=== PATIENT | male | born 1950 | race Caucasian/White ===

== ENCOUNTER 2016-12-04 04:51 | Emergency (ER) | payer OTHER, MEDICAID ==
[2016-12-04 04:58] VITALS: BP 145/79; BMI 25.8
--- NOTE | 2016-12-04 06:15 | DR.GENAD ---
HPI - PCP Primary Care Physician: valeriano - Complaint/Symptoms Chief Complaint Doctors Comments: Patient states that he has left anterior medial chest pain and left back pain lateral left clavicle for two days. Denies a history o cardiac disease. Chief Complaint:: pt c/o upper lt back pain x 2 days-denies injury-pain under lt shoulder blade - Source History Provided: Patient - Mode of Arrival Mode of Arrival: Ambulatory - Timing Onset of Chief Complaint: 12/02/16 PMH - PMH Past Medical History: Yes Past Medical History: Hypertension Past Medical History Comment: prostate,hiatel hernia Past Surgical History: Yes Past Surgical History Comment: cancer cut off neck - Family History History of Family Medical Conditions: No - Social History Does patient currently use any type of tobacco product: No Do you use any recreational Drugs:: No - infectious screening In the last 2 months have you had wt loss of >10#?: NO Have you had fever, night sweats or hemotysis?: No Have you traveled outside the country in the last 6 months?: No Isolation: Standard ROS - Review of Systems Constitutional: No Symptoms Reported. negative: Chills Eyes: No Symptoms Reported ENTM: No Symptoms Reported Respiratoy: No Symptoms Reported Cardiovascular: See HPI Gastrointestinal/Abdominal: No Symptoms Reported Genitourinary: No Symptoms Reported Neurological: No Symptoms Reported Musculoskeletal: No Symptoms Reported Integumentary: No Symptoms Reported Hematologic/Lymphatic: No Symptoms Reported Endocrine: No Symptoms Reported Psychiatric: See HPI All Other Systems: Reviewed and Negative PE - Vital Signs Vitals: Temperature 98.2 F Pulse Rate 64 Respiratory Rate 20 Blood Pressure [Left Arm] 134/89 Blood Pressure 145/79 O2 Sat by Pulse Oximetry 96 - General Limitations: No Limitations General Appearance: Alert, In No Apparent Distress - Head Head Exam: Normal Inspection, Atraumatic - Eyes Eye exam: Normal Appearance, PERRL, EOMI - ENT ENT Exam: Normal Exam External Ear Exam: Normal External Inspection TM/Canal Exam: Bilateral Normal Nose Exam: Normal Nose Exam, Sinus Tenderness Mouth Exam: Normal Inspection Throat Exam: Normal Inspection - Neck Neck Exam: Normal Inspection, Full ROM - Chest Chest Inspection: Normal Inspection - Respiratory Respiratory Exam: Normal Lung Sounds Bilat Respiratory Exam: Bilateral Clear to Auscultation - Cardiovascular Cardiovascular Exam: Bradycardia - Abdominal Exam Abdominal Exam: Normal Inspection, Normal Bowel Sounds Abdominal Tenderness: negative: RUQ, RLQ, LUQ, LLQ, Epigastrium, Suprapubic, Diffuse, Mild, Moderate, Severe, Other - Extremities Extremities Exam: Normal Inspection, Full ROM - Back Back Exam: Normal Inspection. negative: (R) CVA Tenderness, (L) CVA Tenderness - Neurologic Neurological Exam: Alert, Oriented X3, CN II-XII Intact - Psychiatric Psychiatric Exam: Normal Affect - Skin Skin Exam: Warm, Dry, Intact Course - Reevaluation 1st: Unchanged ROR - Labs Reviewed Laboratory Results Reviewed?: Yes (cardiacs negative) Result Diagrams: 12/04/16 06:30 12/04/16 06:30 Laboratory: WBC 6.9 X10^3/uL (3.6-10.0) 12/04/16 06:30 RBC 4.68 X10^6/uL (4.7-6.0) L 12/04/16 06:30 Hgb 14.3 g/dL (13.5-18.0) 12/04/16 06:30 Hct 41.5 % (42.0-54.0) L 12/04/16 06:30 MCV 88.7 fL (80.0-100.0) 12/04/16 06:30 MCH 30.5 pg (27.0-34.0) 12/04/16 06:30 MCHC 34.4 g/dL (33.0-35.0) 12/04/16 06:30 RDW 14.2 % (11.6-16.5) 12/04/16 06:30 Plt Count 204 X10^3/uL (150.0-450.0) 12/04/16 06:30 MPV 8.4 fL (7.4-11.0) 12/04/16 06:30 Neut % 73.6 % (42.0-75.0) 12/04/16 06:30 Lymph % 18.2 % (21.0-51.0) L 12/04/16 06:30 [place] % 5.7 % (0.0-13.0) 12/04/16 06:30 Eos % 1.5 % (0.9-2.9) 12/04/16 06:30 Baso % 1.0 % (0.2-1.0) 12/04/16 06:30 Neut # 5.1 x10^3/uL (2.2-4.8) H 12/04/16 06:30 Lymph # 1.3 X10^3/uL (1.3-2.9) 12/04/16 06:30 [place] # 0.4 x10^3/uL (0.3-0.8) 12/04/16 06:30 Eos # 0.1 x10^3/uL (0.0-0.2) 12/04/16 06:30 Baso # 0.1 X10^3/uL (0.0-0.1) 12/04/16 06:30 Absolute Nucleated RBC 0.0 /100WBC 12/04/16 06:30 INR Target Range - 12/04/16 06:30 INR 0.98 (0.8-1.3) 12/04/16 06:30 PTT 28.6 SECONDS (22.9-36.5) 12/04/16 06:30 PTT Comment - 12/04/16 06:30 Sodium 145 mmol/L (136-145) 12/04/16 06:30 Corrected Sodium 146 mmol/L (136-145) H 12/04/16 06:30 Potassium 4.1 mmol/L (3.5-5.1) 12/04/16 06:30 Chloride 108 mmol/L (98-107) H 12/04/16 06:30 Carbon Dioxide 26.8 mmol/L (21-32) 12/04/16 06:30 BUN 18 mg/dL (7-18) 12/04/16 06:30 Creatinine 0.77 mg/dL (0.70-1.30) 12/04/16 06:30 Est GFR (MDRD) Af Amer > 60 (>60) 12/04/16 06:30 Est GFR (MDRD) Non-Af > 60 (>60) 12/04/16 06:30 Glucose 158 mg/dL (65-99) H 12/04/16 06:30 Calcium 8.5 mg/dL (8.5-10.1) 12/04/16 06:30 Corrected Calcium TNP 12/04/16 06:30 Phosphorus 2.4 mg/dL (2.6-4.7) L 12/04/16 06:30 Magnesium 1.9 mg/dL (1.7-2.9) 12/04/16 06:30 Total Bilirubin 0.30 mg/dL (0.2-1.0) 12/04/16 06:30 AST 24 Units/L (15-37) 12/04/16 06:30 ALT 35 Units/L (12-78) 12/04/16 06:30 Alkaline Phosphatase 77 Units/L (46-116) 12/04/16 06:30 Creatine Kinase 92 Units/L (39-308) 12/04/16 06:30 CK-MB (CK-2) 1.4 ng/mL (0-4.0) 12/04/16 06:30 CK/CKMB % Calc 1.5 % (<4) 12/04/16 06:30 Troponin I < 0.02 ng/mL (0-1.5) 12/04/16 06:30 Total Protein 7.1 g/dL (6.4-8.2) 12/04/16 06:30 Albumin 3.7 g/dL (3.4-5.0) 12/04/16 06:30 Globulin 3.4 g/dL (2.5-4.5) 12/04/16 06:30 Albumin/Globulin Ratio 1.1 Ratio (1.1-2.1) 12/04/16 06:30 - XRAY XRAY Interpreted by: Radiologist (Chest: Hiatal hernia; CT Chest: negative for pericarditis) XRAY Findings: Chest: negative for pericarditis - EKG [place]: Normal Rhythm: SB - Diagnosis Discharge Problem: Chest wall pain - Discharge Plan Condition: Stable - Follow ups/Referrals Follow ups/Referrals: AISHWARYA HAZEL [Primary Care Provider] - 3 days - Instructions
--- NOTE | 2016-12-04 06:18 | RAD ---
HISTORY: Upper chest pain, back pain Study: Chest two-view Comparison: Chest CT February 01, 2015 Findings: The heart is within normal limits in size. The bel are normal. The lungs are mildly hyperinflated b ut free of acute alveolar infiltrates. No pleural effusions are identified. Mild interstitial lung d isease is present. There is a hiatal hernia present. The bony thorax is unremarkable with the except ion of minimal thoracic spondylosis. IMPRESSION: COPD with mild interstitial lung disease Hiatal hernia Reported By:
--- NOTE | 2016-12-04 07:03 | CT ---
HISTORY: Pericarditis, chest pain Study: Chest CT without contrast Comparison: February 01, 2015 Technique: Axial non contrast images with coronal and sagittal reformats. Dose reduction procedures were used with MA/kv adjusted for body size. Findings: Examination of the mediastinum demonstrated no definite evidence for mediastinal masses, enlarged ly mphadenopathy, or enlarged hilar adenopathy. Nonenlarged nodes are present. Coronary artery calcific ations are present. No pericardial effusion is identified. There is a hiatal hernia present. No pleu ral effusions are identified. No chest wall or axillary abnormality is identified. Those portions of the upper abdominal organs visualized were within normal limits. The lungs are hyperinflated. No si gnificant nodules, masses, alveolar infiltrates, areas of consolidation, peribronchial thickening, o r bronchiectasis is identified. IMPRESSION: No evidence for pericardial effusion Lungs hyperinflated but clear Reported By:
[2016-12-04 07:10] LABS: BLOOD UREA NITROGEN 18 mg/dL (7-18); CALCIUM 8.5 mg/dL (8.5-10.1); CARBON DIOXIDE 26.8 mmol/L (21-32); CHLORIDE 108 mmol/L (98-107); COR NA(FOR HYPERGLY) 146 mmol/L (136-145); CREATININE 0.77 mg/dL (0.70-1.30); GLUCOSE 158 mg/dL (65-99); SODIUM 145 mmol/L (136-145); TROPONIN I < 0.02 ng/mL (0-1.5); eGFR BLACK RACES > 60 (>60); eGFR NON BLACK RACES > 60 (>60)
[2016-12-04 07:11] LABS: BASOPHILS # (AUTO) 0.1 X10^3/uL (0.0-0.1); EOSINOPHILS # (AUTO) 0.1 x10^3/uL (0.0-0.2); EOSINOPHILS % (AUTO) 1.5 % (0.9-2.9); HEMATOCRIT 41.5 % (42.0-54.0); HEMOGLOBIN 14.3 g/dL (13.5-18.0); LYMPHOCYTES # (AUTO) 1.3 X10^3/uL (1.3-2.9); LYMPHOCYTES % (AUTO) 18.2 % (21.0-51.0); MEAN CORPUSCULAR HEMOGLOBIN 30.5 pg (27.0-34.0); MEAN CORPUSCULAR HGB CONC 34.4 g/dL (33.0-35.0); MEAN CORPUSCULAR VOLUME 88.7 fL (80.0-100.0); MEAN PLATELET VOLUME 8.4 fL (7.4-11.0); MONOCYTES # (AUTO) 0.4 x10^3/uL (0.3-0.8); MONOCYTES % (AUTO) 5.7 % (0.0-13.0); NEUTROPHILS # (AUTO) 5.1 x10^3/uL (2.2-4.8); NEUTROPHILS % (AUTO) 73.6 % (42.0-75.0); PLATELET COUNT 204 X10^3/uL (150.0-450.0); RED BLOOD COUNT 4.68 X10^6/uL (4.7-6.0); RED CELL DISTRIBUTION WIDTH 14.2 % (11.6-16.5); WHITE BLOOD COUNT 6.9 X10^3/uL (3.6-10.0)
[2016-12-04 07:17] LABS: ALBUMIN 3.7 g/dL (3.4-5.0); ALKALINE PHOSPHATASE 77 Units/L (46-116); CKMB % 1.5 % (<4); CREATINE KINASE 92 Units/L (39-308); CREATINE KINASE MB 1.4 ng/mL (0-4.0)
[2016-12-04 07:24] LABS: ALANINE AMINOTRANSFERASE 35 Units/L (12-78); ASPARTATE AMINO TRANSFERASE 24 Units/L (15-37); TOTAL PROTEIN 7.1 g/dL (6.4-8.2)
[2016-12-04 07:25] LABS: MAGNESIUM 1.9 mg/dL (1.7-2.9); PHOSPHORUS 2.4 mg/dL (2.6-4.7)
== END 2016-12-04 07:43 | disposition home or self-care (01) ==
LOC: ER 04:51
DX: R07.89 Other chest pain (principal)
CPT/HCPCS: 36415; 71020; 71250; 80053; 82550; 82553; 83735; 84100; 84484; 85025; 85610; 85730; 93005; 93010; 96365; 99283; A4222

== ENCOUNTER → 2017-09-27 | Outpatient (CLI) | payer OTHER, MEDICAID ==
--- NOTE | 2017-09-27 13:48 | RAD ---
Examination: Right hip, two views History: Osteoarthritis Findings: Bone density is normal for age. The femoral head is smooth in contour and in normal positio n. Joint space is not significantly narrowed. No fracture or bone destruction or periarticular calcif ication is noted. Impression: No acute or significant right hip findings. Reported By:
== END ==
LOC: RAD 12:39
PROVIDERS: ATTEND Internal Medicine
DX: M16.11 Unilateral primary osteoarthritis, right hip (principal)
CPT/HCPCS: 73501

== ENCOUNTER 2025-06-02 10:20 | Observation (INO) ==
[2025-06-02 11:50] VITALS: BMI 33.7
--- NOTE | 2025-06-02 12:30 | DR.H&P ---
H&P History & Physical for Day of: H&P Date: 06/02/25 Chief Complaint Chief Complaint: STEVENSON, CHILLS, EARACHE, CCC History of Present Illness History of Present Illness: PT IS 74 WM DIRECT ADMIT FROM DR HAZEL'S OFFICE WITH AB AND MASTOIDITIS CONFIRMED ON CT DONE OUTPT. PT HAS ALREADY COMPLETED ORAL ZITHROMAX AND HAD IM ROCEPHIN AND KENALOG INJECTIONS. PT HAS PMH OF DM, HTN, COPD, CAD, OA AND NEUROPATHY. Past Medical History Past Medical History: Anxiety, Arthritis, Depression, Diabetes, GERD and Hypertension Past Surgical History Surgical History: Angioplasty/Stents Family History Family Medical History: Diabetes Mellitus, Cancer, CA, Coronary Artery Disease, Heart Failure and Hypertension Social History Does patient currently use any type of tobacco product: No Type of Tobacco Use: None Alcohol Use: None Drug Use: None Medications Home Medications: Home Medications Medication Instructions Recorded Confirmed Type albuterol sulfate 90 mcg/actuation 1 inh inhalation DA ADRYAN 03/30/23 06/02/25 History breath activated powder inhaler (ProAir RespiClick) clopidogrel 75 mg tablet 75 mg PO QDAY 03/30/2306/02 History diltiazem HCl 120 mg 120 mg PO BID 03/30/2306/02 History capsule,extended release 12 hr esomeprazole magnesium 40 mg 40 mg PO BID 03/30/23 History capsule,delayed release finasteride 5 mg tablet 50 mg PO QDAY 03/30/2306/02 History hydralazine 10 mg tablet 10 mg PO BID 03/30/23 History metformin 500 mg tablet,extended 500 mg PO QDAY 06/02/25 History release 24 hr olmesartan 40 mg tablet 40 mg PO QDAY 03/30/2306/02 History ondansetron HCl 4 mg tablet 4 mg PO Q8H PRN 03/30/23 0 06/02/25 History ropinirole 4 mg tablet 4 mg PO TID 03/30/23 5 History rosuvastatin 40 mg tablet 40 mg PO QHS 03/30/23 History tramadol 50 mg tablet 50 mg PO Q4H PRN 03/30/23 History bupropion HCl 150 mg 24 hr tablet, 150 mg PO QDAY 05/1706/02/25 History extended release celecoxib 100 mg capsule 100 mg PO BID 06/02/2506/02 History empagliflozin 25 mg tablet 25 mg PO QDAY 06/02/2505/17 History (Jardiance) ergocalciferol (vitamin D2) 1,250 1,250 mcg PO QWEEK 0 06/02/25 06/02/25 History mcg (50,000 unit) capsule (Vitamin D2) levocetirizine 5 mg tablet 5 mg PO QHS 06/02/25 History melatonin 10 mg chewable tablet 20 mg PO QHS 06/02/25 06/02/25 History quetiapine 25 mg tablet 25 mg PO QPM 06/02/25 History Allergies Allergies Allergy/AdvReac Type Severity Reaction Status Date / Time Sulfa (Sulfonamide Allergy Verified 06/02/25 11:58 Antibiotics) (SULFA) Review of Systems Constitutional: Fever, Chills and Weakness Eyes: No Symptoms Reported ENT: Ear Pain, Nose Discharge and Nose Congestion Respiratory: Cough and Shortness of Breath Cardiovascular: No Symptoms Reported Gastrointestinal: Nausea Genitourinary: Frequency Musculoskeletal: Back Pain Skin: No Symptoms Reported Neurological: Other (DIZZINESS) Physical Exam Vital Signs: Vital Signs Temperature 98.0 F Pulse Rate [Radial] 62 Respiratory Rate 20 Blood Pressure [Right Arm] 146/76 O2 Sat by Pulse Oximetry 94 Oriented: Normal Eyes: Normal Ear: Right (EXTERNAL CANAL SURGICALLY CLOSE WITH COCHCLEAR IMPLANT) and Left Nose: Discharge Throat: Red Respiratory: Wheezes Throughout Cardiovascular: Edema Auscultation: Bowel Sounds: Normal Palpation: Normal Tenderness: Normal Skin: Decreased Turgur Musculoskeletal: Back:Lumbar Psychiatric: Anxiety Mood Description: Anxious Affect: Anxious Speech Pattern: Clear and Appropriate Assessment/Plan (1) Mastoiditis: Status: Acute Plan: ADMIT, BLOOD CULTURES X 2, CRP AND SED RATE IV HYDRATION AND IV ATBX THERAPY SEE CT FROM OUTPT VISIT READ ON 05/27 PAIN CONTROL AND BP CONTROL (2) Otitis media: Status: Acute (3) Acute bronchitis: Status: Acute (4) Hypertension, essential: Status: Acute (5) Diabetes: Status: Acute (6) CAD (coronary artery disease): Status: Acute
[2025-06-02] MEDS: NS 1,000 ML IV 1,000 ML IV SCH (12:58)
[2025-06-02] MEDS ORDERED: PHARMACY CONSULT - VANCOMYCIN XX SCH (13:00)
[2025-06-02] MEDS ORDERED: PHARMACY CONSULT XX SCH (13:00)
[2025-06-02 13:08] LABS: BLOOD/HEMOGLOBIN,URINE NEGATIVE (NEGATIVE); LEUKOCYTE ESTERASE ,URINE NEGATIVE (NEGATIVE); NITRITES,URINE NEGATIVE (NEGATIVE)
[2025-06-02 13:11] LABS: MEAN PLATELET VOLUME 7.2 fL (7.4-11.0); RED CELL DISTRIBUTION WIDTH 18.5 % (11.6-16.5)
[2025-06-02 13:12] LABS: ERYTHROCYTE SEDIMENTATION RATE 58 MM/HOUR (0-15)
[2025-06-02 13:14] LABS: APPEARANCE,URINE CLEAR (CLEAR)
[2025-06-02 13:15] LABS: CALCIUM OXALATE CRYSTALS,UR RARE /HPF (NEGATIVE); SQUAMOUS EPITHELIAL CELL,UR RARE /HPF (NEGATIVE)
[2025-06-02 13:19] LABS: COR NA(FOR HYPERGLY) 142 mmol/L (136-145); CREATININE 0.81 mg/dL (0.70-1.30); eGFR NON BLACK RACES > 60 (>60)
[2025-06-02] MEDS: PROVENTIL NEB TX 0.083% 2.5MG/ 3ML NEB SCH (13:25)
[2025-06-02] MEDS: REQUIP PO SCH (13:57)
[2025-06-02] MEDS: VANCOMYCIN IV *PREMIX 1.25 G/250 ML BAG 1.25 G/250 ML PIGGYBACK IV SCH (14:55)
[2025-06-02] MEDS: LOVENOX INJ 40 MG SYR SC SCH (14:55)
[2025-06-02] MEDS: TYLENOL 325 MG TAB PO PRN (15:56)
--- NOTE | 2025-06-02 16:33 | RAD ---
EXAM: CHEST, PA/LAT ADULT HISTORY: ccc; COMPARISON: 05/10/2025 br.br.br.br.br.br.br.br prominent cardiac silhouette, accentuated by technique. Left-sided pacer leads in place. Pulmonary vascular engorgement. Mild hazy perihilar opacities. No pleural effusion or visible pneumothorax. IMPRESSION: Pulmonary vascular engorgement and suspected pulmonary edema. THIS IS AN ELECTRONICALLY VERIFIED FINAL REPORT 06/02/2025 4:30 PM - Electronically signed by King Flores MD
[2025-06-02] MEDS: LOVENOX INJ 40 MG SYR SC ONE (17:46)
[2025-06-02] MEDS: VANCOMYCIN IV *PREMIX 1.25 G/250 ML BAG 1.25 G/250 ML PIGGYBACK IV ONE (17:46)
[2025-06-02] MEDS: TYLENOL 325 MG TAB PO ONE (17:47)
[2025-06-02] MEDS: PROTONIX TAB 40 MG PO SCH (20:37)
[2025-06-03 04:52] LABS: MEAN PLATELET VOLUME 7.3 fL (7.4-11.0); RED CELL DISTRIBUTION WIDTH 18.5 % (11.6-16.5)
[2025-06-03 05:00] LABS: COR CA(FOR HYPOALB) 9.5 mg/dL (8.5-10.1); CREATININE 0.61 mg/dL (0.70-1.30); eGFR NON BLACK RACES > 60 (>60)
[2025-06-03] MEDS ORDERED: PROSCAR PO SCH (09:00)
[2025-06-03] MEDS: LASIX IVP ONE (09:31)
[2025-06-03] MEDS: CARDIZEM CD 240 MG 24-HR PO SCH (09:32)
[2025-06-03] MEDS: BENICAR PO SCH (09:32)
[2025-06-03] MEDS: GLUCOPHAGE XR 24-HR PO SCH (09:32)
[2025-06-03] MEDS: PLAVIX PO SCH (09:32)
[2025-06-03] MEDS: WELLBUTRIN XL 150 MG (DAILY) PO SCH (09:35)
[2025-06-03] MEDS: PROSCAR PO SCH (09:47)
[2025-06-03] MEDS: NORCO 5/325 MG TAB PO PRN (09:48)
[2025-06-03] MEDS: TORADOL 30 MG VIAL IVP ONE (14:17)
[2025-06-03] MEDS: NORCO 7.5/325 MG TAB PO PRN (15:57)
[2025-06-03 21:08] LABS: CREATININE 0.76 mg/dL (0.70-1.30)
[2025-06-03] MEDS: PHARMACY COMMENT IV NR (21:16)
[2025-06-03] MEDS: MAALOX or MYLANTA PO PRN (23:23)
[2025-06-04 06:04] LABS: MEAN PLATELET VOLUME 7.2 fL (7.4-11.0); RED CELL DISTRIBUTION WIDTH 18.4 % (11.6-16.5)
[2025-06-04 06:22] LABS: CREATININE 0.74 mg/dL (0.70-1.30); eGFR NON BLACK RACES > 60 (>60)
--- NOTE | 2025-06-04 07:43 | RAD ---
EXAM: CHEST, PA/LAT ADULT HISTORY: CCC ; COPD, HTN, SLEEP APNEA, GERD BPH SX: PACEMAKER, ANGIO/STENTS COMPARISON: 06/02/2025 FINDINGS: r device overlying the left hemithorax is observed. The lungs are clear without focal infiltrate or effusion. The bony thorax is unremarkable. IMPRESSION: No acute cardiopulmonary disease. THIS IS AN ELECTRONICALLY VERIFIED FINAL REPORT 06/04/2025 7:40 AM - Electronically signed by Cedrick Ontiveros MD
[2025-06-04 07:59] VITALS: BP 138/81; TEMP 97.4
[2025-06-04 09:20] VITALS: PULSE 50; O2SAT 95
[2025-06-04 10:09] VITALS: RESP 18
== END 2025-06-04 11:15 | disposition home or self-care (01) ==
LOC: MED/SURG
PROVIDERS: ADMIT Internal Medicine; ATTEND Internal Medicine
DX: F32.89 Other specified depressive episodes; K21.9 Gastro-esophageal reflux disease without esophagitis; R79.82 Elevated C-reactive protein (CRP); H70.002 Acute mastoiditis without complications, left ear; R51.9 Headache, unspecified; J20.8 Acute bronchitis due to other specified organisms; E11.65 Type 2 diabetes mellitus with hyperglycemia; Z16.29 Resistance to other single specified antibiotic; B96.29 Other Escherichia coli [E. coli] as the cause of diseases classified elsewhere; J44.9 Chronic obstructive pulmonary disease, unspecified; Z16.12 Extended spectrum beta lactamase (ESBL) resistance; M19.90 Unspecified osteoarthritis, unspecified site; R53.1 Weakness; I10 Essential (primary) hypertension; R70.0 Elevated erythrocyte sedimentation rate; Z96.21 Cochlear implant status; I25.10 Atherosclerotic heart disease of native coronary artery without angina pectoris; Z16.23 Resistance to quinolones and fluoroquinolones; F41.8 Other specified anxiety disorders; H66.92 Otitis media, unspecified, left ear; G47.00 Insomnia, unspecified